=== PATIENT | female | born 1980 | race Caucasian/White ===

== ENCOUNTER 2016-12-07 07:51 | Emergency (ER) | payer BC ==
[2016-12-07 08:05] VITALS: BP 119/72
--- NOTE | 2016-12-07 09:03 | UC ---
Throat Pain/Nasal Hany HPI - HPI Summary HPI Summary: 36 yo female with sore throat x 2 weeks R>>L Swollen glands R>>L no f/c no URI symptoms some right otalgia - History of Current Complaint Chief Complaint: UCRespiratory Stated Complaint: SORE THROAT X 2WKS Time Seen by Provider: 12/07/16 08:50 Hx Obtained From: Patient Hx Last Menstrual Period: 11/20/16 ?: Yes Onset/Duration: Gradual Onset, Lasting Weeks Severity: Moderate Pain Intensity: 4 Pain Scale Used: 0-10 Numeric Related History: Prior ENT Surgery - sinus surgery -Dr. Rust - Epiglottits Risk Factors Epiglottis Risk Factors: Negative - Allergies/Home Medications Allergies/Adverse Reactions: Allergies Allergy/AdvReac Type Severity Reaction Status Date / Time Morphine Allergy Severe Anaphylatic Verified 12/07/16 08:05 Shock Hydrocodone [From Vicodin] Allergy Intermediate Itching Verified 12/07/16 08:05 Methylprednisolone Allergy Intermediate Headache Verified 12/07/16 08:05 Oxycodone Allergy Intermediate Vomiting Verified 12/07/16 08:05 Prednisolone Allergy Intermediate Headache Verified 12/07/16 08:05 Amoxicillin Allergy YEAST Verified 12/07/16 08:05 INFECTION Home Medications: Home Medications Progesterone CAP (NF) [Prometrium (NF)] 200 mg PO SEE INSTRUCTIONS 12/07/16 [ History Confirmed 12/07/16] PMH/Surg Hx/FS Hx/Imm Hx Previously Healthy: Yes - Surgical History Surgical History: Yes Surgery Procedure, Year, and Place: Sinus surgery left side, arthroscopy right knee, lumpectomy right axilla, laparoscopy, D&C. [place] 06/25. right ovary and right tube removed 03/25 - Family History Known Family History: Positive: Hypertension, Renal Disease - mother with stage 3 renal disease. - Social History Alcohol Use: Occasionally Substance Use Type: None Smoking Status (MU): Never Smoked Tobacco Have You Smoked in the Last Year: No - Immunization History Most Recent Influenza Vaccination: 1803-7114 season Review of Systems Constitutional: Negative Skin: Negative Eyes: Negative ENT: Sore Throat, Ear Ache Respiratory: Negative Cardiovascular: Negative Gastrointestinal: Negative Genitourinary: Negative Motor: Negative Neurovascular: Negative Musculoskeletal: Negative Neurological: Negative Psychological: Negative All Other Systems Reviewed And Are Negative: Yes Physical Exam Triage Information Reviewed: Yes Appearance: Well-Appearing, No Pain Distress, Well-Nourished Vital Signs: Initial Vital Signs Temp 98 F 12/07/16 07:59 Pulse 83 12/07/16 07:59 Resp 16 12/07/16 07:59 BP 119/72 12/07/16 07:59 Pulse Ox 100 12/07/16 07:59 Vital Signs Reviewed: Yes Eyes: Positive: Conjunctiva Clear ENT: Positive: Hearing grossly normal, Pharyngeal erythema, TMs normal, Tonsillar swelling Neck: Positive: Supple, Enlarged Nodes @ - anterior cervical R>L Respiratory: Positive: Lungs clear, Normal breath sounds, No respiratory distress Cardiovascular: Positive: RRR Abdomen Description: Positive: Nontender, Soft, Bruit, CVA Tenderness (R) Musculoskeletal: Positive: ROM Intact, No Edema Neurological: Positive: Alert Psychological Exam: Normal Skin Exam: Normal Throat Pain/Nasal Course/Dx - Course Course Of Treatment: RS(-) - Differential Dx/Diagnosis Provider Diagnoses: Pharyngitis Discharge - Discharge Plan Condition: Stable Disposition: HOME Prescriptions: Penicillin VK TAB 500 MG(NF) [Penicillin VK 500 mg Tab(NF)] 500 mg PO BID #20 tab Patient Education Materials: Pharyngitis (ED) Referrals: Martin Brunner MD [Primary Care Provider] - Additional Instructions: RAPID STREP (-) throat culture pending recheck next week if not better (your MD or ENT)
== END 2016-12-07 09:23 | disposition home or self-care (01) ==
LOC: UCCORT 07:51
DX: J02.9 Acute pharyngitis, unspecified (principal)
CPT/HCPCS: 87070; 87651; 99212; G0463